=== PATIENT | male | born 2000 | race Caucasian/White ===

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

== ENCOUNTER 2021-01-07 21:33 | Emergency (ER) | payer OTHER ==
[~2021-01-07] VITALS: Ht 182.9 cm; Wt 82.7 kg
[2021-01-07 21:33] VITALS: BP 153/67
== END 2021-01-08 00:59 | disposition left against medical advice (07) ==
LOC: M ED 01-08 00:44
DX: Z53.21 Procedure and treatment not carried out due to patient leaving prior to being seen by health care provider (principal)